=== PATIENT | male | born 1950 | race Two or more races ===

== ENCOUNTER → 2016-12-31 | Outpatient (CLI) | payer OTHER | END | disposition home or self-care (01) | DX: M17.11 Unilateral primary osteoarthritis, right knee (principal); R26.2 Difficulty in walking, not elsewhere classified; M62.81 Muscle weakness (generalized); M25.661 Stiffness of right knee, not elsewhere classified | CPT/HCPCS: 97110 GP; 97150 GO; 97161 GP; 97165 GO; G8978 GP; G8979 GP; G8980 GP; G8987 GO; G8988 GO; G8989 GO ==

== ENCOUNTER 2017-01-27 05:37 | Inpatient (IN) | payer OTHER ==
[~2017-01-27] VITALS: Ht 185.4 cm; Wt 112.0 kg
[~2017-01-27 05:37] MED LIST: ADVIL200 MG PO
[2017-01-27 05:53] VITALS: BP 136/85
[2017-01-27 11:05] LABS: HEMATOCRIT 42.7 % (38.0-50.0); MCH 30.1 PG (29.0-34.0); MCHC 33.5 G/DL (30.0-36.0); MCV 89.9 FL (86-99); MEAN PLAT.VOLUME 8.5 uM^3 (9.0-12.4); PLATELET COUNT 240 K/uL (156-360); RBC DIS.WIDTH-CV 11.6 % (11.8-14.6); RBC DIS.WIDTH-SD 38.5 % (39-53); RED BLOOD COUNT 4.75 M/uL (4.00-5.50); WHITE BLOOD COUNT 6.7 K/uL (4.1-10.2)
[2017-01-27 11:15] VITALS: BP 119/83
[2017-01-27 15:29] VITALS: BP 131/80
[2017-01-27 19:56] VITALS: BP 173/89
[2017-01-27 23:54] VITALS: BP 149/75
[2017-01-28 04:16] VITALS: BP 138/77
[2017-01-28 05:52] LABS: HEMATOCRIT 40.7 % (38.0-50.0); MCV 89.8 FL (86-99)
[2017-01-28 06:14] LABS: ANION GAP 9 MEQ/L (2-14); CHLORIDE 98 MEQ/L (99-109); GFR ESTIMATE (CALCULATED) > 59 mL/min/; GLUCOSE 144 mg/dL (70-99); POTASSIUM 4.2 MEQ/L (3.7-5.4); SAMPLE HEMOLYSIS CHECK 0; SAMPLE ICTERIC CHECK 0; SAMPLE LIPEMIA CHECK 0; SODIUM 134 MEQ/L (136-147); UREA NITROGEN (BUN) 11 mg/dL (9-23)
[2017-01-28 08:00] VITALS: BP 133/77
[2017-01-28 11:31] VITALS: BP 157/78
[2017-01-28 15:54] VITALS: BP 126/77
[2017-01-28 20:18] VITALS: BP 114/72
[2017-01-29 00:10] VITALS: BP 113/64
[2017-01-29 04:18] VITALS: BP 112/67
[2017-01-29 05:24] LABS: HEMATOCRIT 36.5 % (38.0-50.0); MCV 89.2 FL (86-99)
[2017-01-29 05:50] LABS: ANION GAP 9 MEQ/L (2-14); CHLORIDE 101 MEQ/L (99-109); GFR ESTIMATE (CALCULATED) > 59 mL/min/; GLUCOSE 123 mg/dL (70-99); POTASSIUM 3.8 MEQ/L (3.7-5.4); SAMPLE HEMOLYSIS CHECK 0; SAMPLE ICTERIC CHECK 0; SAMPLE LIPEMIA CHECK 0; SODIUM 136 MEQ/L (136-147); UREA NITROGEN (BUN) 12 mg/dL (9-23)
[2017-01-29 08:00] VITALS: BP 140/71
[2017-01-29] MEDS ORDERED: OXYCODONE-APAP1 EACH PO (08:55)
[2017-01-29] MEDS ORDERED: LOVENOX40 MG/0.4 SC (08:55)
[2017-01-29] MEDS ORDERED: CELECOXIB200 MG PO (08:55)
[2017-01-29] MEDS ORDERED: DOCUSATE SODIU100 MG PO (08:55)
[2017-01-29] MEDS ORDERED: ENDOCET 5-3251 EACH PO (09:01)
[2017-01-29 12:08] VITALS: BP 104/65
[2017-01-29 15:10] VITALS: BP 136/77
== END 2017-01-29 15:25 | DRG 470 ==
LOC: 3WEST 05:37 → 2SOUTH 05:37 → 3WEST 10:54 → 2SOUTH 11:10 → 3WEST 01-29 15:25
PROVIDERS: Orthopaedic Surgery; Physician Assistant
PROC: 0SRC0J9 Replacement of Right Knee Joint with Synthetic Substitute, Cemented, Open Approach (ICD-10-PCS; principal; 2017-01-27)
DX: M17.11 Unilateral primary osteoarthritis, right knee (principal)
CPT/HCPCS: 73560; 80048; 85014; 85018; 85027; J0690; J1170; J1650; J2250; J2405; J7050